=== PATIENT | male | born 1960 | race Caucasian/White ===

== ENCOUNTER 2024-03-18 23:31 | Inpatient (IN) | payer MEDICAID ==
[~2024-03-18] VITALS: Ht 185.4 cm; Wt 123.2 kg
[2024-03-19] VITALS (13 sets, daily range): BP systolic 117–145; BP diastolic 67–85; PULSE 57–82; RESP 10–18; TEMP 96.9–98.6; O2SAT 90–99
[2024-03-19] MEDS ORDERED: heparin 10,000 units/1 ML INJ IV PRN (00:30)
[2024-03-19] MEDS ORDERED: LISI1TAB49 PO (00:42)
[2024-03-19] MEDS ORDERED: ASPI81TA52 PO (00:42)
[2024-03-19 00:54] LABS: ALBUMIN 3.6 G/DL (3.4-5.0); ANION GAP 11 (8-16); BLOOD UREA NITROGEN 15 MG/DL (7-18); BUN/CREATININE RATIO 15.6 (10.0-20.0); CALCIUM 8.9 MG/DL (8.5-10.1); CHLORIDE 103 MMOL/L (99-107); CREATININE 0.96 MG/DL (0.60-1.10); GLUCOSE 171 MG/DL (70-104); POTASSIUM 3.9 MMOL/L (3.5-5.1); SODIUM 140 MMOL/L (135-145); TOTAL CARBON DIOXIDE 26.4 MMOL/L (24-32); eCRCL 91 ML/MIN; eGFR 80 ML/MIN
[2024-03-19 00:59] LABS: APTT 33 SECONDS (22-32); INR 1.1 INR; PROTHROMBIN TIME 11.2 SECONDS (9.0-12.0)
[2024-03-19 01:17] LABS: BASOPHILS # (AUTO) 0.1 X10'3 (0-0.2); BASOPHILS % (AUTO) 0.8 % (0-1); EOSINOPHILS # (AUTO) 0.4 X10'3 (0-0.9); EOSINOPHILS % (AUTO) 4.2 % (0-6); HEMATOCRIT 44.4 % (42.0-52.0); HEMOGLOBIN 15.2 g/dl (14.0-17.9); LYMPHOCYTES # (AUTO) 3.3 X10'3 (1.1-4.8); LYMPHOCYTES % (AUTO) 34.8 % (21-51); MEAN CORPUSCULAR HEMOGLOBIN 31.7 PG (27.0-31.0); MEAN CORPUSCULAR HGB CONC 34.3 g/dL (33.0-36.5); MEAN CORPUSCULAR VOLUME 92.5 FL (78-98); MEAN PLATELET VOLUME 8.6 FL (7.4-10.4); MONOCYTES # (AUTO) 0.6 X10'3 (0-0.9); MONOCYTES % (AUTO) 6.2 % (2-12); NEUTROPHILS # (AUTO) 5.2 X10'3 (1.8-7.7); PLATELET COUNT 152 X10'3 (140-440); RED CELL DISTRIBUTION WIDTH 13.1 % (11.5-14.5); WHITE BLOOD COUNT 9.6 X10'3 (4.5-11.0)
[2024-03-19] MEDS: heparin 10,000 units/1 ML INJ IV ONE (01:52)
[2024-03-19] MEDS: heparin 25,000 UNIT/250ml bag 250 ML IV PRN (01:53)
[2024-03-19] MEDS: MESSAGE TO NURSING IV ONE (01:59)
[2024-03-19] MEDS ORDERED: magnesium Cl slow-release 64mg tablet PO PRN (05:15)
[2024-03-19] MEDS ORDERED: ondansetron/PF 4mg/2ml inj IV PRN (05:15)
[2024-03-19] MEDS ORDERED: acetaminophen 325mg tablet PO PRN (05:15)
[2024-03-19] MEDS ORDERED: potassium Cl 40MEQ/1/2NS 520ml 520 ML IV PRN (05:15)
[2024-03-19] MEDS ORDERED: magnesium hydroxide 30ml (MOM) UD suspension PO PRN (05:15)
[2024-03-19] MEDS ORDERED: LORazepam 2 mg/ml vial IV PRN (05:15)
[2024-03-19] MEDS ORDERED: LORazepam 1 MG tablet PO PRN (05:15)
[2024-03-19] MEDS ORDERED: morphine 2 MG/ML inj. syringe IV PRN ×2 (05:15)
[2024-03-19] MEDS ORDERED: PERFLUTREN PROTEIN-A MICROSPHR (Optison) 0.22 MG/ML 3ML VIAL IV PRN (05:15)
[2024-03-19] MEDS ORDERED: magnesium sulf-water 4G/100mL 100 ML IV PRN (05:15)
[2024-03-19] MEDS ORDERED: mag hydrox/Alum hydrox/simeth 30ml oral suspension PO PRN (05:15)
[2024-03-19] MEDS ORDERED: docusate sod 100mg capsule PO PRN (05:15)
[2024-03-19] MEDS ORDERED: magnesium sulf-water 2g/50mL 50 ML IV PRN (05:15)
[2024-03-19] MEDS ORDERED: potassium Cl 20 mEq SR tablet PO PRN ×2 (05:15)
[2024-03-19] MEDS ORDERED: nitroGLYCERIN 0.4mg SUBLingual tab SL PRN ×2 (05:15→08:35)
[2024-03-19] MEDS ORDERED: ipratropium/albuterol 3ml nebule NEB PRN (05:25)
[2024-03-19] MEDS: K and/or MAG REPLACEMENT MC SCH (06:35)
[2024-03-19 07:14] LABS: MAGNESIUM 1.8 MG/DL (1.5-2.4); POTASSIUM 3.8 MMOL/L (3.5-5.1)
[2024-03-19] MEDS: pantoprazole 40mg Tablet.DR PO SCH (07:28)
[2024-03-19] MEDS: multivitamins, therapeutics tablet PO SCH (07:28)
[2024-03-19] MEDS: HYDROchlorothiazide 12.5mg capsule PO SCH (07:28)
[2024-03-19] MEDS: aspirin 81mg, enteric-coated 1 TAB TABLET.DR PO SCH (07:28)
[2024-03-19] MEDS: atorvastatin 20mg tablet PO SCH (07:29)
[2024-03-19] MEDS: lisinopril 10 MG tablet PO SCH (07:29)
[2024-03-19] MEDS: metoprolol succinate 25mg (24-HOUR) SR. Tablet PO SCH (07:29)
[2024-03-19 07:48] LABS: HEMOGLOBIN A1C 9.4 % (4.5-6.2); THYROID STIMULATING HORMONE 1.71 ulU/ml (0.34-4.50)
[2024-03-19 08:08] LABS: BILIRUBIN,URINE NEGATIVE (Neg); CLARITY,URINE CLEAR (Clear); COLOR,URINE YELLOW (Yellow); GLUCOSE, URINE 100 mg/dl (Neg); KETONES,URINE NEGATIVE (Neg); LEUKOCYTE ESTERASE ,URINE NEGATIVE (Neg); NITRITES, URINE NEGATIVE (Neg); OCCULT BLOOD,URINE NEGATIVE (Neg); PROTEIN,URINE 30 mg/dl (Neg); UROBILINOGEN,URINE 0.2 E.U/dL (0.2-1.0)
[2024-03-19 08:14] LABS: UA COLLECTION TYPE CLN CATCH MIDSTREAM
[2024-03-19 08:16] LABS: BACTERIA,URINE NONE SEEN /HPF (Neg); MUCUS STRANDS NONE SEEN /LPF (Neg); RBC,URINE NONE SEEN /HPF (0-2); SQUAMOUS EPITHELIAL CELL,UR FEW /LPF (FEW); WBC,URINE 0-4 /HPF (0-4)
[2024-03-19] MEDS ORDERED: aminophylline 250mg/10ml inj. IV PRN (08:35)
[2024-03-19] MEDS ORDERED: metoprolol tartrate 1mg/ml inj IV PRN (08:35)
[2024-03-19] MEDS ORDERED: aminophylline 500mg/20ml vial IV PRN (11:11)
[2024-03-19] MEDS: INSULIN LISPRO 100 UNIT/ML INSULN.PEN MULTI-DOSE SQ SCH (12:00)
[2024-03-19] MEDS: PERFLUTREN PROTEIN-A MICROSPHR (Optison) 0.22 MG/ML 3ML VIAL IV ONE (12:45)
[2024-03-19] MEDS: regadenoson 0.4mg/5ml syringe IV PRN (13:36)
[2024-03-19] MEDS: heparin, porcine 5000 units/ml vial SQ SCH (21:46)
[2024-03-20] VITALS (14 sets, daily range): BP systolic 128–190; BP diastolic 50–96; PULSE 55–65; RESP 12–20; TEMP 97–98.3; O2SAT 92–96
[2024-03-20] MEDS ORDERED: midazolam 1 mg/ML 2ml injection ONE (07:33)
[2024-03-20] MEDS ORDERED: LIDOcaine 1% (10mg/ml) 2ml vial ONE (07:33)
[2024-03-20] MEDS ORDERED: verapamil 2.5 mg/ml inj IV ONE (07:33)
[2024-03-20] MEDS ORDERED: iohexol 350MG/ML 100ml bottle IV ONE (07:34)
[2024-03-20] MEDS ORDERED: fentaNYL/PF 50MCG/1 ML 2ML syringe ONE (07:34)
[2024-03-20] MEDS ORDERED: nitroGLYCERIN 500mcg/5mL D5W 5 ML IV ONE ×2 (07:34→08:36)
[2024-03-20] MEDS ORDERED: iohexol 350 MG/ML 50ML vial IV ONE (07:34)
[2024-03-20] MEDS ORDERED: heparin 1,000unit/ml 10ml vial 10 ML ONE ×2 (07:34→09:04)
[2024-03-20 07:42] LABS: BASOPHILS % (AUTO) 0.5 % (0-1); EOSINOPHILS # (AUTO) 0.3 X10'3 (0-0.9); EOSINOPHILS % (AUTO) 3.6 % (0-6); HEMATOCRIT 45.6 % (42.0-52.0); HEMOGLOBIN 15.5 g/dl (14.0-17.9); LYMPHOCYTES # (AUTO) 2.7 X10'3 (1.1-4.8); LYMPHOCYTES % (AUTO) 28.6 % (21-51); MEAN CORPUSCULAR HEMOGLOBIN 31.6 PG (27.0-31.0); MEAN CORPUSCULAR VOLUME 92.9 FL (78-98); MEAN PLATELET VOLUME 9.2 FL (7.4-10.4); MONOCYTES # (AUTO) 0.6 X10'3 (0-0.9); MONOCYTES % (AUTO) 6.7 % (2-12); NEUTROPHILS # (AUTO) 5.7 X10'3 (1.8-7.7); NEUTROPHILS % (AUTO) 60.6 % (42-75); PLATELET COUNT 154 X10'3 (140-440); RED CELL DISTRIBUTION WIDTH 13.2 % (11.5-14.5); WHITE BLOOD COUNT 9.5 X10'3 (4.5-11.0)
[2024-03-20 08:03] LABS: ALANINE AMINOTRANSFERASE 44 U/L (12-78); ALBUMIN 3.4 G/DL (3.4-5.0); ALKALINE PHOSPHATASE 56 IU/L (46-116); ANION GAP 9 (8-16); ASPARTATE AMINO TRANSFERASE 21 U/L (10-37); BLOOD UREA NITROGEN 17 MG/DL (7-18); BUN/CREATININE RATIO 14.9 (10.0-20.0); CALCIUM 9.4 MG/DL (8.5-10.1); CHLORIDE 104 MMOL/L (99-107); CHOL/HDL RATIO 5.5 (0.00-4.99); CHOLESTEROL 187 MG/DL (0-200); CREATININE 1.14 MG/DL (0.60-1.10); GLUCOSE 200 MG/DL (70-104); HDL CHOLESTEROL 34 MG/DL (35-60); LDL CHOLESTEROL 114 MG/DL (50-100); MAGNESIUM 1.7 MG/DL (1.5-2.4); PHOSPHORUS 3.6 MG/DL (2.3-4.5); POTASSIUM 4.3 MMOL/L (3.5-5.1); SODIUM 139 MMOL/L (135-145); TOTAL CARBON DIOXIDE 25.8 MMOL/L (24-32); TOTAL PROTEIN 6.7 G/DL (6.4-8.2); TRIGLYCERIDES 266 MG/DL (20-135); eCRCL 77 ML/MIN; eGFR 65 ML/MIN
[2024-03-20] MEDS ORDERED: heparin 25,000 UNIT/250ml bag 250 ML IV ONE (08:27)
[2024-03-20] MEDS ORDERED: atropine 0.1mg/ml 10ml syringe ONE (08:41)
[2024-03-20] MEDS ORDERED: clopidogrel 300mg tablet ONE (09:07)
[2024-03-20] MEDS: labetalol 20mg/4ml (5mg/ml) syringe IV ONE (11:46)
[2024-03-20] MEDS: normal saline 1000ml 1,000 ML IV SCH (12:37)
[2024-03-20] MEDS ORDERED: hydrALAZINE 20mg/ml inj. IV PRN (13:50)
[2024-03-20] MEDS: insulin glargine (Lantus) pen - multi-dose SQ SCH (21:05)
[2024-03-21 02:00] VITALS: BP 151/90; PULSE 50; RESP 16; TEMP 97.4; O2SAT 94
[2024-03-21 06:00] VITALS: BP 148/82; PULSE 55; RESP 14; TEMP 97.5; O2SAT 94
[2024-03-21 07:04] LABS: BASOPHILS # (AUTO) 0.1 X10'3 (0-0.2); BASOPHILS % (AUTO) 0.7 % (0-1); EOSINOPHILS # (AUTO) 0.4 X10'3 (0-0.9); EOSINOPHILS % (AUTO) 3.3 % (0-6); HEMATOCRIT 44.6 % (42.0-52.0); HEMOGLOBIN 15.2 g/dl (14.0-17.9); LYMPHOCYTES # (AUTO) 2.9 X10'3 (1.1-4.8); MEAN CORPUSCULAR HEMOGLOBIN 31.7 PG (27.0-31.0); MEAN CORPUSCULAR HGB CONC 34.1 g/dL (33.0-36.5); MEAN CORPUSCULAR VOLUME 92.9 FL (78-98); MEAN PLATELET VOLUME 9.5 FL (7.4-10.4); MONOCYTES # (AUTO) 0.7 X10'3 (0-0.9); MONOCYTES % (AUTO) 6.9 % (2-12); NEUTROPHILS # (AUTO) 6.6 X10'3 (1.8-7.7); NEUTROPHILS % (AUTO) 62.1 % (42-75); PLATELET COUNT 157 X10'3 (140-440); RED CELL DISTRIBUTION WIDTH 13.2 % (11.5-14.5); WHITE BLOOD COUNT 10.7 X10'3 (4.5-11.0)
[2024-03-21 07:17] LABS: ALANINE AMINOTRANSFERASE 45 U/L (12-78); ALBUMIN 3.3 G/DL (3.4-5.0); ALKALINE PHOSPHATASE 65 IU/L (46-116); ANION GAP 7 (8-16); ASPARTATE AMINO TRANSFERASE 24 U/L (10-37); BILIRUBIN,TOTAL 0.8 MG/DL (0.1-1.0); BLOOD UREA NITROGEN 19 MG/DL (7-18); CALCIUM 8.6 MG/DL (8.5-10.1); CHLORIDE 106 MMOL/L (99-107); CREATININE 1.12 MG/DL (0.60-1.10); GLUCOSE 178 MG/DL (70-104); MAGNESIUM 1.7 MG/DL (1.5-2.4); PHOSPHORUS 4.3 MG/DL (2.3-4.5); SODIUM 140 MMOL/L (135-145); TOTAL CARBON DIOXIDE 26.7 MMOL/L (24-32); TOTAL PROTEIN 6.5 G/DL (6.4-8.2); eCRCL 78 ML/MIN; eGFR 67 ML/MIN
[2024-03-21] MEDS: clopidogrel 75mg tablet PO SCH (07:57)
[2024-03-21 08:00] VITALS: RESP 12; O2SAT 94
[2024-03-21] MEDS: lisinopril 20mg tablet PO SCH (08:00)
[2024-03-21] MEDS ORDERED: LISI20TA28 PO (10:51)
[2024-03-21] MEDS ORDERED: CLOP75TA34 PO (10:51)
[2024-03-21] MEDS ORDERED: OMEG100037 PO (10:51)
[2024-03-21] MEDS ORDERED: thiamine tablet PO (10:51)
[2024-03-21] MEDS ORDERED: FOLI1TAB27 PO (10:51)
[2024-03-21] MEDS ORDERED: PANT40TA54 PO (10:51)
[2024-03-21] MEDS ORDERED: ATOR20TA66 PO ×2 (10:51→11:40)
[2024-03-21] MEDS ORDERED: METO-395 PO (10:51)
[2024-03-21] MEDS ORDERED: METF-1203 PO (10:51)
[2024-03-21 11:00] VITALS: BP 141/88; PULSE 60; RESP 18; TEMP 98.9; O2SAT 97
[2024-03-21] MEDS ORDERED: EMPA10TA PO (11:40)
[2024-03-21 15:00] VITALS: BP 135/72; PULSE 64; RESP 16; TEMP 97.8; O2SAT 96
[2024-03-22] MEDS ORDERED: thiamine 100mg tablet PO SCH (08:00)
[2024-03-23] MEDS ORDERED: folic acid 1mg tablet PO SCH (08:00)
== END 2024-03-21 16:02 | disposition home or self-care (01) | DRG 174 ==
LOC: ER 23:32 → UNDOADMIN 03-19 04:43 → ED HOLD 03-19 04:43 → PCU 3S 03-19 13:54 → UNDODISIN 03-21 16:02
PROVIDERS: ADMIT Surgery Surgical Critical Care; ATTEND Family Medicine
PROC: 4A02XM4 Measurement of Cardiac Total Activity, External Approach (ICD-10-PCS; 2024-03-19)
PROC: 3E033HZ Introduction of Radioactive Substance into Peripheral Vein, Percutaneous Approach (ICD-10-PCS; 2024-03-19)
PROC: 5A09357 Assistance with Respiratory Ventilation, Less than 24 Consecutive Hours, Continuous Positive Airway Pressure (ICD-10-PCS; 2024-03-19)
PROC: 027034Z Dilation of Coronary Artery, One Artery with Drug-eluting Intraluminal Device, Percutaneous Approach (ICD-10-PCS; principal; 2024-03-20)
PROC: 4A023N7 Measurement of Cardiac Sampling and Pressure, Left Heart, Percutaneous Approach (ICD-10-PCS; 2024-03-20)
PROC: B2111ZZ Fluoroscopy of Multiple Coronary Arteries using Low Osmolar Contrast (ICD-10-PCS; 2024-03-20)
PROC: B2151ZZ Fluoroscopy of Left Heart using Low Osmolar Contrast (ICD-10-PCS; 2024-03-20)
DX: I21.4 Non-ST elevation (NSTEMI) myocardial infarction (principal); E11.65 Type 2 diabetes mellitus with hyperglycemia; E66.812 Obesity, class 2; I16.1 Hypertensive emergency; K21.9 Gastro-esophageal reflux disease without esophagitis; F17.210 Nicotine dependence, cigarettes, uncomplicated; G47.33 Obstructive sleep apnea (adult) (pediatric); F10.10 Alcohol abuse, uncomplicated; I25.110 Atherosclerotic heart disease of native coronary artery with unstable angina pectoris; Y90.9 Presence of alcohol in blood, level not specified; E78.5 Hyperlipidemia, unspecified; Z91.199 Patient's noncompliance with other medical treatment and regimen due to unspecified reason; Z79.82 Long term (current) use of aspirin; Z68.35 Body mass index [BMI] 35.0-35.9, adult; Z95.5 Presence of coronary angioplasty implant and graft
CPT/HCPCS: 36415; 76937; 78452; 80048; 80053; 80061; 81001; 82948; 83036; 83735; 83880; 84100; 84132; 84443; 84484; 85025; 85347; 85610; 85730; 87081; 93005; 93017; 93306; 93458; 94660; 94760; 99152; 99153; 99291; A6258; A9500; C1725; C1751; C1769; C1874; C1894; C9600; G0378; J0461; J1644; J1815; J2003; J2250; J2785; J3010; J3490; J7030; Q9967